=== PATIENT | female | born 1940 | race Caucasian/White ===

== ENCOUNTER 2017-11-04 15:05 | Observation (INO) | payer MEDICARE, OTHER ==
[~2017-11-04 15:05] MED LIST: ASPI81 PO; ATOR10 PO; BIOTCAP PO; BUSP5TAB PO; BYST5TAB2 PO; CO Q100C9 PO; FISH1000 PO; KONS520C PO; SUPECAP3 PO; VITA200017 PO; VITA400C28 PO
[2017-11-04 15:12] VITALS: BP 200/78; PULSE 85; RESP 20; TEMP 98.5; O2SAT 99
[2017-11-04] MEDS ORDERED: SODIUM CHLORIDE 0.9% FLUSH 10 ML FLUSH IVF PRN (15:30)
--- NOTE | 2017-11-04 15:34 | PD ---
HPI Chief Complaint: Chest Pain Time Seen by Provider: 15:19 Travel History International Travel<30 days: No Contact w/Intl Traveler<30days: No Traveled to known affect area: No History of Present Illness HPI 76-year-old female presents with chest pressure since yesterday. She states she took a baby aspirin and nitro. She states in August [place] she had a cardiac catheterization where they cleaned out 2 vessels but they did not stent them. She states she was there because she was visiting. She states Dr. Boswell is her supervisor prepress. She denies any other concurrent complaints other than her arm is bothering her also. Quality is pressure. Severity is moderate. Duration is since yesterday. PFSH Past Medical History Hx Anticoagulant Therapy: Yes Cardiovascular Problems: Yes Hypertension: Yes ?: Not Social History Alcohol Use: Yes (OCCASIONALLY) Tobacco Use: No Allergies-Medications (Allergen,Severity, Reaction): Coded Allergies: codeine (Unverified Allergy, Severe, Rash, 11/04/17) meperidine (Unverified Allergy, Severe, Rash, 11/04/17) morphine (Unverified Allergy, Severe, ITCHING AND RASH, 11/04/17) cefazolin (Unverified Adverse Reaction, Mild, Nausea/Vomiting, 11/04/17) Reported Meds & Prescriptions Reported Meds & Active Scripts Active Reported Icaps (Multiple Vitamins W/ Minerals) 1 Cap 1 Cap PO DAILY Vitamin D-3 (Cholecalciferol) 2,000 Unit Tab 2,000 Units PO DAILY Plavix (Clopidogrel Bisulfate) 75 Mg Tab 75 Mg PO DAILY Aspirin Adult Low Strength (Aspirin) 81 Mg Tabdr 81 Mg PO DAILY Metoprolol Tartrate 25 Mg Tab 25 Mg PO BID Lipitor (Atorvastatin Calcium) 40 Mg Tab 40 Mg PO DAILY Isosorbide Mononitrate ER (Isosorbide Mononitrate) 30 Mg Murphy 30 Mg PO DAILY Claritin (Loratadine) 10 Mg Tablet 10 Mg PO DAILY PRN Review of Systems Except as stated in HPI: all other systems reviewed are Neg Physical Exam Narrative GENERAL: 76-year-old female in no apparent distress SKIN: Focused skin assessment warm/dry. HEAD: Atraumatic. Normocephalic. EYES: Pupils equal and round. No scleral icterus. No injection or drainage. ENT: No nasal bleeding or discharge. Mucous membranes pink and moist. NECK: Trachea midline. No JVD. CARDIOVASCULAR: Regular rate and rhythm. RESPIRATORY: No accessory muscle use. No increased effort GASTROINTESTINAL: Abdomen soft, non-tender, nondistended. MUSCULOSKELETAL: No obvious deformities. No clubbing. No cyanosis. NEUROLOGICAL: Awake and alert. No obvious cranial nerve deficits. Motor grossly within normal limits. Normal speech. PSYCHIATRIC: Appropriate mood and affect; insight and judgment normal. Data Data Last Documented VS Vital Signs Date Time Temp Pulse Resp B/P (MAP) Pulse Ox O2 Delivery O2 Flow Rate FiO2 11/04/17 17:00 65 18 165/78 (107) 98 Room Air 11/04/17 15:12 98.5 Orders Orders Electrocardiogram (11/04/17 15:21) B-Type Natriuretic Peptide (11/04/17 15:21) Ckmb (Isoenzyme) Profile (11/04/17 15:21) Complete Blood Count With Diff (11/04/17 15:21) Comprehensive Metabolic Panel (11/04/17 15:21) Magnesium (Mg) (11/04/17 15:21) Prothrombin Time / Inr (Pt) (11/04/17 15:21) Act Partial Throm Time (Ptt) (11/04/17 15:21) Troponin I (11/04/17 15:21) Chest, Single Ap (11/04/17 15:21) Ecg Monitoring (11/04/17 15:21) Bilateral Bp Monitoring (11/04/17 15:21) Iv Access Insert/Monitor (11/04/17 15:21) Oximetry (11/04/17 15:21) Sodium Chloride 0.9% Flush (Ns Flush) (11/04/17 15:30) Aspirin Chew (Aspirin Chew) (11/04/17 15:45) Nitroglycerin Sl (Nitrostat Sl) (11/04/17 15:45) Admit Order (Ed Use Only) (11/04/17 18:16) Labs Laboratory Tests Test 11/04/17 16:15 White Blood Count 7.8 TH/MM3 Red Blood Count 4.94 MIL/MM3 Hemoglobin 13.6 GM/DL Hematocrit 40.1 % Mean Corpuscular Volume 81.1 FL Mean Corpuscular Hemoglobin 27.6 PG Mean Corpuscular Hemoglobin Concent 34.0 % Red Cell Distribution Width 13.3 % Platelet Count 256 TH/MM3 Mean Platelet Volume 8.3 FL Neutrophils (%) (Auto) 60.6 % Lymphocytes (%) (Auto) 26.2 % Monocytes (%) (Auto) 9.3 % Eosinophils (%) (Auto) 2.4 % Basophils (%) (Auto) 1.5 % Neutrophils # (Auto) 4.7 TH/MM3 Lymphocytes # (Auto) 2.1 TH/MM3 Monocytes # (Auto) 0.7 TH/MM3 Eosinophils # (Auto) 0.2 TH/MM3 Basophils # (Auto) 0.1 TH/MM3 CBC Comment DIFF FINAL Differential Comment Prothrombin Time 11.3 SEC Prothromb Time International Ratio 1.1 RATIO Activated Partial Thromboplast Time 24.5 SEC Blood Urea Nitrogen 14 MG/DL Creatinine 0.71 MG/DL Random Glucose 83 MG/DL Total Protein 7.8 GM/DL Albumin 4.3 GM/DL Calcium Level 9.2 MG/DL Magnesium Level 2.2 MG/DL Alkaline Phosphatase 81 U/L Aspartate Amino Transf (AST/SGOT) 15 U/L Alanine Aminotransferase (ALT/SGPT) 25 U/L Total Bilirubin 0.5 MG/DL Sodium Level 141 MEQ/L Potassium Level 3.8 MEQ/L Chloride Level 104 MEQ/L Carbon Dioxide Level 26.0 MEQ/L Anion Gap 11 MEQ/L Estimat Glomerular Filtration Rate 80 ML/MIN Total Creatine Kinase 65 U/L Troponin I LESS THAN 0.02 NG/ML B-Type Natriuretic Peptide 34 PG/ML MDM Medical Decision Making Medical Screen Exam Complete: Yes Emergency Medical Condition: Yes Medical Record Reviewed: Yes (Past history confirmed) Interpretation(s) CBC & BMP Diagram 11/04/17 16:15 Total Protein 7.8, Albumin 4.3, Calcium Level 9.2, Magnesium Level 2.2, Alkaline Phosphatase 81, Aspartate Amino Transf (AST/SGOT) 15, Alanine Aminotransferase (ALT/SGPT) 25, Total Bilirubin 0.5 Last 24 hours Impressions Chest X-Ray 11/04/17 1521 Signed Impressions: CONCLUSION: 1. No acute cardiopulmonary disease. 2. Mild degenerative changes and scoliosis of the thoracic spine. Differential Diagnosis UT, gastritis, musculoskeletal Narrative Course Will check blood work, imaging and dose with aspirin and nitroglycerin and reevaluate ed workup no acute, will discuss with her supervisor prepress patient updated and agrees to admit Physician Communication Physician Communication dr escobedo states ok with oral and maxillofacial surgery resident observation Diagnosis Primary Impression: Chest pain Qualified Codes: R07.9 - Chest pain, unspecified Admitting Information Admitting Physician Requests: Observation Latrice Salas MD Nov 04, 2017 15:34
[2017-11-04] MEDS ORDERED: NITROGLYCERIN 0.4 MG SL 25 TABS/BTL SL ONE (15:45)
[2017-11-04] MEDS ORDERED: ASPIRIN 81 MG CHEW TAB PO ONE (15:45)
--- NOTE | 2017-11-04 16:21 | RADRPT ---
EXAM DATE: 11/04/2017 4:17 PM EDT AGE/SEX: 76 years / Female INDICATIONS: Pain to anterior chest wall. CLINICAL DATA: This is the patient's initial encounter. Patient reports that signs and symptoms have been present for 1 day and indicates a pain score of 6/10. MEDICAL/SURGICAL HISTORY: None. None. COMPARISON: No prior exams available for comparison. FINDINGS: A single AP view of the chest demonstrates the lungs to be symmetrically aerated without evidence of mass, infiltrate or effusion. The cardiomediastinal contours are unremarkable. Mild degenerative renard nges and scoliosis of the thoracic spine are noted. CONCLUSION: 1. No acute cardiopulmonary disease. 2. Mild degenerative changes and scoliosis of the thoracic spine. Electronically signed by: Mleecio Kendrick MD 11/04/2017 4:19 PM EDT
[2017-11-04 16:23] VITALS: O2SAT 98
[2017-11-04] MEDS ORDERED: CLAR10TA7 PO (16:59)
[2017-11-04] MEDS ORDERED: CHOL1TAB42 PO (16:59)
[2017-11-04] MEDS ORDERED: ASPI81TA16 PO (16:59)
[2017-11-04] MEDS ORDERED: PLAV75TA29 PO (16:59)
[2017-11-04] MEDS ORDERED: ISOS30TA3 PO (16:59)
[2017-11-04] MEDS ORDERED: LIPI40TA PO (16:59)
[2017-11-04] MEDS ORDERED: ICAPCAP PO (16:59)
[2017-11-04] MEDS ORDERED: METO25TA3 PO (16:59)
[2017-11-04 17:00] VITALS: BP 165/78; PULSE 65; RESP 18; O2SAT 98
[2017-11-04 17:09] LABS: AUTOMATED NEUTROPHIL # 4.7 TH/MM3 (1.8-7.7); BASOPHIL # 0.1 TH/MM3 (0-0.2); BASOPHIL % 1.5 % (0.0-2.0); EOSINOPHIL # 0.2 TH/MM3 (0-0.4); EOSINOPHIL % 2.4 % (0.0-4.0); HEMATOCRIT 40.1 % (35.0-46.0); HEMOGLOBIN 13.6 GM/DL (11.6-15.3); LYMPH % 26.2 % (9.0-44.0); LYMPHOCYTE # 2.1 TH/MM3 (1.0-4.8); MEAN CELL VOLUME 81.1 FL (80.0-100.0); MEAN CORPUSCULAR HEMOGLOBIN 27.6 PG (27.0-34.0); MEAN PLATELET VOLUME 8.3 FL (7.0-11.0); MONO % 9.3 % (0.0-8.0); MONOCYTE # 0.7 TH/MM3 (0-0.9); NEUT % 60.6 % (16.0-70.0); PLATELET COUNT 256 TH/MM3 (150-450); RED BLOOD COUNT 4.94 MIL/MM3 (4.00-5.30); RED CELL DISTRIBUTION WIDTH 13.3 % (11.6-17.2); WHITE BLOOD COUNT 7.8 TH/MM3 (4.0-11.0)
[2017-11-04 17:21] LABS: INTERNATIONAL NORMALIZED RATIO 1.1 RATIO; PROTHROMBIN TIME - PATIENT 11.3 SEC (9.8-11.6)
[2017-11-04 17:46] LABS: ALBUMIN 4.3 GM/DL (3.4-5.0); AST (GOT) 15 U/L (15-37); BLOOD UREA NITROGEN 14 MG/DL (7-18); CALCIUM 9.2 MG/DL (8.5-10.1); CHLORIDE 104 MEQ/L (98-107); CREATININE 0.71 MG/DL (0.50-1.00); GLOMERULAR FILTRATION RATE 80 ML/MIN (>89); GLUCOSE,RANDOM 83 MG/DL (74-106); MAGNESIUM 2.2 MG/DL (1.5-2.5); SODIUM (NA) 141 MEQ/L (136-145)
[2017-11-04 17:47] LABS: ALT (GPT) 25 U/L (10-53)
[2017-11-04 17:50] LABS: ALKALINE PHOSPHATASE 81 U/L (45-117); TOTAL BILIRUBIN ADULT 0.5 MG/DL (0.2-1.0); TOTAL PROTEIN 7.8 GM/DL (6.4-8.2); TROPONIN I LESS THAN 0.02 NG/ML (0.02-0.05)
[2017-11-04 19:58] VITALS: O2SAT 97
[2017-11-04] MEDS ORDERED: SODIUM CHLORIDE 0.9% FLUSH 10 ML FLUSH IV FLUSH PRN (20:00)
[2017-11-04 20:10] VITALS: BP 160/75
[2017-11-04 20:46] VITALS: BP 178/83; PULSE 63; RESP 15; TEMP 98.4; O2SAT 97
[2017-11-04] MEDS: SODIUM CHLORIDE 0.9% FLUSH 10 ML FLUSH IV FLUSH SCH (20:56)
[2017-11-04 21:19] LABS: TROPONIN I LESS THAN 0.02 NG/ML (0.02-0.05)
[2017-11-05] VITALS (8 sets, daily range): BP systolic 128–225; BP diastolic 57–95; PULSE 56–85; RESP 16–23; TEMP 98–98.5; O2SAT 95–98
[2017-11-05 00:41] LABS: TROPONIN I LESS THAN 0.02 NG/ML (0.02-0.05)
--- NOTE | 2017-11-05 07:16 | EKG ---
Date Performed: 11/04/2017 Time Performed: 14:40:57 PTAGE: 76 years EKG: Sinus rhythm WITH OCCASIONAL ECTOPIC PREMATURE COMPLEXES LEFT ATRIAL ENLARGEMENT LEFT VENTRICULAR HYPERTROPHY AND ST-T CHANGE ABNORMAL ECG Since PREVIOUS TRACING , no significant change noted PREVIOUS TRACIN07/02/2000 22.05 DOCTOR: Milagros Arzola Interpretating Date/Time 11/05/2017 07:14:23
--- NOTE | 2017-11-05 07:16 | EKG ---
Date Performed: 11/04/2017 Time Performed: 20:50:03 PTAGE: 76 years EKG: Sinus rhythm POSSIBLE LEFT ATRIAL ENLARGEMENT LEFT VENTRICULAR HYPERTROPHY AND ST-T CHANGE ABNORMAL ECG Since PREVIOUS TRACING , no significant change noted PREVIOUS TRACIN11/04/2017 14.40 DOCTOR: Milagros Arzola Interpretating Date/Time 11/05/2017 07:14:56
[2017-11-05] MEDS ORDERED: METOPROLOL TARTRATE 25 MG TAB PO SCH (09:15)
[2017-11-05] MEDS ORDERED: ATORVASTATIN 40 MG TAB PO SCH (09:15)
[2017-11-05] MEDS ORDERED: CLOPIDOGREL 75 MG TAB PO SCH (09:15)
[2017-11-05] MEDS ORDERED: CHOLECALCIFEROL (VIT D3) 1000 UNIT TAB PO SCH (09:15)
[2017-11-05] MEDS ORDERED: MULTIVITAMIN-OPHTHALMIC 1 TAB PO SCH (09:15)
[2017-11-05] MEDS ORDERED: ASPIRIN EC 81 MG TABEC PO SCH (09:15)
[2017-11-05] MEDS ORDERED: LORATADINE 10 MG TAB PO PRN (09:15)
[2017-11-05] MEDS ORDERED: ISOSORBIDE MONONITRATE 30 MG CR TAB (IMDUR) PO SCH (09:15)
--- NOTE | 2017-11-05 10:25 | HHI.HP ---
HPI Primary Care Physician Unknown Chief Complaint Chest pain History of Present Illness This is a 76-year-old female with history of CAD, hypertension, and hyperlipidemia that presents to ED with complaint of chest pain and shortness of breath. States that she had a heart catheterization August and "they cleaned out to arteries but did not put in stents." She has seen her medical insurance collector Dr. Boswell since then. States that she has continued to have same discomforts since having the heart catheterization. States she believes it is brought on with stressful situations. She become short of breath with it and sometimes she only her only symptom is shortness of breath. Denies nausea or diaphoresis. She has had no chest discomfort since being in the chest pain center. Review of Systems General: Patient denies fevers, chills, and recent travel. HEENT: Patient denies headache, sore throat, difficulty swallowing. Cardiovascular: Has the chest discomfort as mentioned above. Denies sensation of heart beating rapidly or irregularly. No syncope. Denies diaphoresis. Respiratory: She has been short of breath. Denies inspirational chest discomfort. Denies coughing wheezing or hemoptysis. GI: Patient denies nausea, vomiting, diarrhea, abdominal pain, bloody stools. Musculoskeletal: Patient denies joint pain or edema. Denies calf pain or edema. Neurovascular: Patient denies numbness, tingling, weakness in extremities. Denies headache. Endocrine: Denies polyuria and polydipsia. Hematologic: Denies easy bruising. Skin: Denies rash or itching. Past Family Social History Allergies: Coded Allergies: codeine (Unverified Allergy, Severe, Rash, 11/04/17) meperidine (Unverified Allergy, Severe, Rash, 11/04/17) morphine (Unverified Allergy, Severe, ITCHING AND RASH, 11/04/17) cefazolin (Unverified Adverse Reaction, Mild, Nausea/Vomiting, 11/04/17) Past Medical History CAD. Hypertension and hyperlipidemia. Denies diabetes. Past Surgical History Heart catheterization 2 months ago, states that 2 arteries were cleaned out but no stent. Reported Medications Reported Meds & Active Scripts Active Reported Icaps (Multiple Vitamins W/ Minerals) 1 Cap 1 Cap PO DAILY Vitamin D-3 (Cholecalciferol) 2,000 Unit Tab 2,000 Units PO DAILY Plavix (Clopidogrel Bisulfate) 75 Mg Tab 75 Mg PO DAILY Aspirin Adult Low Strength (Aspirin) 81 Mg Tabdr 81 Mg PO DAILY Metoprolol Tartrate 25 Mg Tab 25 Mg PO BID Lipitor (Atorvastatin Calcium) 40 Mg Tab 40 Mg PO DAILY Isosorbide Mononitrate ER (Isosorbide Mononitrate) 30 Mg Murphy 30 Mg PO DAILY Claritin (Loratadine) 10 Mg Tablet 10 Mg PO DAILY PRN Active Ordered Medications Current Medications Medications (Trade) Dose Ordered Sig/Eliel Route Start Time Stop Time Status Last Admin (NS Flush) 2 ml UNSCH PRN IVF 11/04/17 15:30 11/04/17 16:21 (NS Flush) 2 ml UNSCH PRN IV FLUSH 11/04/17 20:00 (NS Flush) 2 ml BID IV FLUSH 11/04/17 21:00 11/04/17 20:56 (Ecotrin Ec) 81 mg DAILY PO 11/05/17 09:15 (Lipitor) 40 mg DAILY PO 11/05/17 09:15 (Plavix) 75 mg DAILY PO 11/05/17 09:15 (Imdur) 30 mg DAILY@0700 PO 11/05/17 09:15 (Claritin) 10 mg DAILY PRN PO 11/05/17 09:15 (Lopressor) 25 mg BID PO 11/05/17 09:15 (Vitamin D3) 2,000 units DAILY PO 11/05/17 09:15 (Ocuvite) 1 tab DAILY PO 11/05/17 09:15 Family History Family history of CAD. Social History Does not smoke or use illicit drugs. Rare alcohol. Physical Exam Vital Signs Vital Signs Date Time Temp Pulse Resp B/P (MAP) Pulse Ox O2 Delivery O2 Flow Rate FiO2 11/05/17 08:03 98.2 85 23 225/95 (138) 11/05/17 07:23 67 11/05/17 04:43 98.5 59 16 165/72 (103) 98 11/05/17 04:19 57 11/05/17 02:25 56 11/05/17 01:12 98.3 59 16 140/69 (92) 97 11/04/17 20:46 98.4 63 15 178/83 (114) 97 11/04/17 20:10 60 18 160/75 (103) 98 11/04/17 19:58 97 21 11/04/17 17:00 65 18 165/78 (107) 98 Room Air 11/04/17 16:23 98 Room Air 11/04/17 15:12 98.5 85 20 200/78 (118) 99 Physical Exam GENERAL: This is a well-nourished, well-developed patient, in no apparent distress. Patient speaks in clear complete sentences. Patient is pleasant. HEENT: Head is atraumatic and normocephalic. Neck is supple without lymphadenopathy and trachea is midline. No JVD or carotid bruits. CARDIOVASCULAR: Regular rate and rhythm without murmurs, gallops, or rubs. RESPIRATORY: Clear to auscultation. Breath sounds equal bilaterally. No wheezes , rales, or rhonchi. Chest wall is nontender. No use of accessory muscles. GASTROINTESTINAL: Abdomen is nontender, nondistended. Abdomen soft. No obvious pulsatile mass or bruit. No CVA tenderness. Strong femoral pulses bilaterally. Normal bowel sounds in all quadrants. MUSCULOSKELETAL: Patient is moving upper and lower extremities freely. No calf tenderness or edema, no Homans sign. Strong pulses in upper and lower extremities. NEUROLOGICAL: Patient is alert and oriented. Cranial nerves 2-12 are grossly intact. No focal deficits and speech is clear. SKIN: No rash and turgor is normal. Laboratory Laboratory Tests Test 11/04/17 16:15 11/04/17 20:34 11/04/17 23:56 White Blood Count 7.8 Red Blood Count 4.94 Hemoglobin 13.6 Hematocrit 40.1 Mean Corpuscular Volume 81.1 Mean Corpuscular Hemoglobin 27.6 Mean Corpuscular Hemoglobin Concent 34.0 Red Cell Distribution Width 13.3 Platelet Count 256 Mean Platelet Volume 8.3 Neutrophils (%) (Auto) 60.6 Lymphocytes (%) (Auto) 26.2 Monocytes (%) (Auto) 9.3 Eosinophils (%) (Auto) 2.4 Basophils (%) (Auto) 1.5 Neutrophils # (Auto) 4.7 Lymphocytes # (Auto) 2.1 Monocytes # (Auto) 0.7 Eosinophils # (Auto) 0.2 Basophils # (Auto) 0.1 CBC Comment DIFF FINAL Differential Comment Prothrombin Time 11.3 Prothromb Time International Ratio 1.1 Activated Partial Thromboplast Time 24.5 Blood Urea Nitrogen 14 Creatinine 0.71 Random Glucose 83 Total Protein 7.8 Albumin 4.3 Calcium Level 9.2 Magnesium Level 2.2 Alkaline Phosphatase 81 Aspartate Amino Transf (AST/SGOT) 15 Alanine Aminotransferase (ALT/SGPT) 25 Total Bilirubin 0.5 Sodium Level 141 Potassium Level 3.8 Chloride Level 104 Carbon Dioxide Level 26.0 Anion Gap 11 Estimat Glomerular Filtration Rate 80 Total Creatine Kinase 65 68 55 Troponin I LESS THAN 0.02 LESS THAN 0.02 LESS THAN 0.02 B-Type Natriuretic Peptide 34 Result Diagram: 11/04/17 1615 11/04/17 1615 Imaging Last 48 hours Impressions Chest X-Ray 11/04/17 1521 Signed Impressions: CONCLUSION: 1. No acute cardiopulmonary disease. 2. Mild degenerative changes and scoliosis of the thoracic spine. Course EKGs have been sinus rhythm sinus bradycardia without significant ST segment depressions or elevations. Caprini VTE Risk Assessment Caprini VTE Risk Assessment: Mod/High Risk (score >= 2) Caprini Risk Assessment Model Point Value = 1 Point Value = 2 Point Value = 3 Point Value = 5 Age 41-60 Minor surgery BMI > 25 kg/m2 Swollen legs Varicose veins or History of unexplained or recurrent spontaneous Oral contraceptives or hormone replacement Sepsis (< 1 month) Serious lung disease, including pneumonia (< 1 month) Abnormal pulmonary function Acute myocardial infarction Congestive heart failure (< 1 month) History of inflammatory bowel disease Medical patient at bed rest Age 61-74 Arthroscopic surgery Major open surgery (> 45 min) Laparoscopic surgery (> 45 min) Malignancy Confined to bed (> 72 hours) Immobilizing plaster cast Central venous access Age >= 75 History of VTE Family history of VTE Factor V Leiden Prothrombin [id number] Lupus anticoagulant Anticardiolipin antibodies Elevated serum homocysteine Heparin-induced thrombocytopenia Other congenital or acquired thrombophilia Stroke (< 1 month) Elective arthroplasty Hip, pelvis, or leg fracture Acute spinal cord injury (< 1 month) Prophylaxis Regimen Total Risk Factor Score Risk Level Prophylaxis Regimen 0-1 Low Early ambulation 2 Moderate Order ONE of the following: *Sequential Compression Device (SCD) *Heparin 5000 units SQ BID 3-4 Higher Order ONE of the following medications: *Heparin 5000 units SQ TID *Enoxaparin/Lovenox 40 mg SQ daily (WT < 150 kg, CrCl > 30 mL/min) *Enoxaparin/Lovenox 30 mg SQ daily (WT < 150 kg, CrCl > 10-29 mL/min) *Enoxaparin/Lovenox 30 mg SQ BID (WT < 150 kg, CrCl > 30 mL/min) AND/OR *Sequential Compression Device (SCD) 5 or more Highest Order ONE of the following medications: *Heparin 5000 units SQ TID (Preferred with Epidurals) *Enoxaparin/Lovenox 40 mg SQ daily (WT < 150 kg, CrCl > 30 mL/min) *Enoxaparin/Lovenox 30 mg SQ daily (WT < 150 kg, CrCl > 10-29 mL/min) *Enoxaparin/Lovenox 30 mg SQ BID (WT < 150 kg, CrCl > 30 mL/min) AND *Sequential Compression Device (SCD) Assessment and Plan Assessment and Plan * Chest pain: Patient has had serial cardiac enzymes and EKGs for ruling out purposes. She was seen by myself and Dr. Arzola in the chest pain center. A call was placed out to Dr. Boswell to discuss this patient. The nurse brought to my attention that the patient has requested a different provider. She also states that she will not leave until being seen by Dr. Boswell. I discussed this with Dr. Boswell. She will be admitted to hospitalist with consult to Dr. Boswell. I have put in the Lexiscan ordered that Dr. rogers has requested. Dr. Hodges has accepted the patient to his service. Reza Peter Nov 05, 2017 10:25
[2017-11-05] MEDS: SODIUM CHLORIDE 0.9% FLUSH 10 ML FLUSH IV FLUSH SCH (10:46)
--- NOTE | 2017-11-05 12:26 | EKG ---
Date Performed: 11/04/2017 Time Performed: 22:55:37 PTAGE: 76 years EKG: SINUS BRADYCARDIA POSSIBLE LEFT ATRIAL ENLARGEMENT LEFT VENTRICULAR HYPERTROPHY AND ST-T CH KATERIN ABNORMAL ECG Since PREVIOUS TRACING , no significant change noted PREVIOUS TRACIN11/04/2017 20.50 DOCTOR: Milagros Arzola Interpretating Date/Time 11/05/2017 12:25:41
[2017-11-05] MEDS ORDERED: amLODIPine BESYLATE 5 MG TAB PO SCH (12:30)
--- NOTE | 2017-11-05 12:44 | PD.CONS ---
HPI Service Cardiology Consult Requested By Reason for Consult Chest pain Primary Care Physician Dr. Richa Palomino History of Present Illness Pleasant anxious 76 year old female well known to our practice with a history or recent heart cath with angioplasty 08/[address] Tamayo in [facility], moderate to sever carotid stenosis, HTN, hyperlipidemia, and palpitations. She reports that she has been having episodes of chest discomfort associated with SOB that occur when she is under stress. She admits to feeling anxious and becoming easily stressed. She reports that the pain is not worse with exertion and does not radiate. She denies any nausea or vomiting. Does have dizziness, long history of vertigo. On examination she reports having a dull chest ache that is constant, does not change in severity when applying pressure to chest wall. BP was elevated this AM, pt reports it is due to stress. (July Loo) Review of Systems Consitutional: DENIES: Fatigue, Fever, Chills, Weight gain, Weight loss Eyes: DENIES: Amaurosis Fugax, Change in vision HEENT: COMPLAINS OF: Lightheadedness Respiratory: COMPLAINS OF: Shortness of breath Cardiovascular: COMPLAINS OF: Chest pain Gastrointestinal: DENIES: Nausea, Vomiting, Change in bowel habits, Reflux, Bloody stools, Melena Genitourinary: DENIES: Urinary incontinence, Difficulty voiding Integumentary: DENIES: Rash Neurologic: DENIES: Tingling or numbness, Memory problems, Poor Balance, Stroke symptoms Musculoskeletal: DENIES: Joint pain, Muscle pain, Limited range of motion, Back pain Psychiatric: DENIES: Anxiety, Depression, Sleep disturbances Hematologic: DENIES: Bruising tendencies, Bleeding tendencies Endocrine: DENIES: Weight gain, Weight loss, Thyroid disease (July Loo) Past Family Social History Allergies: Coded Allergies: codeine (Unverified Allergy, Severe, Rash, 11/04/17) meperidine (Unverified Allergy, Severe, Rash, 11/04/17) morphine (Unverified Allergy, Severe, ITCHING AND RASH, 11/04/17) cefazolin (Unverified Adverse Reaction, Mild, Nausea/Vomiting, 11/04/17) Past Medical History ASHD, status post recent heart cath and angioplasty with Dr. Tamayo in [facility] 2017 HTN Moderate to severe carotid stenosis Hyperlipidemia Anxiety Memory Impairment. Past Surgical History Heart catheterization 08/2017 and 04/2011 Reported Medications Reported Meds & Active Scripts Active Reported Icaps (Multiple Vitamins W/ Minerals) 1 Cap 1 Cap PO DAILY Vitamin D-3 (Cholecalciferol) 2,000 Unit Tab 2,000 Units PO DAILY Plavix (Clopidogrel Bisulfate) 75 Mg Tab 75 Mg PO DAILY Aspirin Adult Low Strength (Aspirin) 81 Mg Tabdr 81 Mg PO DAILY Metoprolol Tartrate 25 Mg Tab 25 Mg PO BID Lipitor (Atorvastatin Calcium) 40 Mg Tab 40 Mg PO DAILY Isosorbide Mononitrate ER (Isosorbide Mononitrate) 30 Mg Murphy 30 Mg PO DAILY Claritin (Loratadine) 10 Mg Tablet 10 Mg PO DAILY PRN Active Ordered Medications Current Medications Medications (Trade) Dose Ordered Sig/Eliel Route Start Time Stop Time Status Last Admin (NS Flush) 2 ml UNSCH PRN IVF 11/04/17 15:30 11/04/17 16:21 (NS Flush) 2 ml UNSCH PRN IV FLUSH 11/04/17 20:00 (NS Flush) 2 ml BID IV FLUSH 11/04/17 21:00 11/05/17 10:46 (Ecotrin Ec) 81 mg DAILY PO 11/05/17 09:15 11/05/17 10:46 (Lipitor) 40 mg DAILY PO 11/05/17 09:15 11/05/17 10:46 (Plavix) 75 mg DAILY PO 11/05/17 09:15 (Imdur) 30 mg DAILY@0700 PO 11/05/17 09:15 11/05/17 11:02 (Claritin) 10 mg DAILY PRN PO 11/05/17 09:15 11/05/17 10:46 (Lopressor) 25 mg BID PO 11/05/17 09:15 11/05/17 10:47 (Vitamin D3) 2,000 units DAILY PO 11/05/17 09:15 11/05/17 10:45 (Ocuvite) 1 tab DAILY PO 11/05/17 09:15 Family History Unknown Social History Former smoker, No ETOH use (Shadeed,August CHICK SEXER) Physical Exam Vital Signs Vital Signs Date Time Temp Pulse Resp B/P (MAP) Pulse Ox O2 Delivery O2 Flow Rate FiO2 11/05/17 11:49 61 11/05/17 08:03 98.2 85 23 225/95 (138) 11/05/17 07:23 67 11/05/17 04:43 98.5 59 16 165/72 (103) 98 11/05/17 04:19 57 11/05/17 02:25 56 11/05/17 01:12 98.3 59 16 140/69 (92) 97 11/04/17 20:46 98.4 63 15 178/83 (114) 97 11/04/17 20:10 60 18 160/75 (103) 98 11/04/17 19:58 97 21 11/04/17 17:00 65 18 165/78 (107) 98 Room Air 11/04/17 16:23 98 Room Air 11/04/17 15:12 98.5 85 20 200/78 (118) 99 Physical Exam GENERAL: Pleasantly, anxious, elderly female. SKIN: Warm and dry. HEAD: Atraumatic. Normocephalic. EYES: Pupils equal and round. No scleral icterus. No injection or drainage. ENT: No nasal bleeding or discharge. Mucous membranes pink and moist. NECK: Trachea midline. No JVD. CARDIOVASCULAR: Regular rate and rhythm. RESPIRATORY: No accessory muscle use. Clear to auscultation. Breath sounds equal bilaterally. GASTROINTESTINAL: Abdomen soft, non-tender, nondistended. Hepatic and splenic margins not palpable. MUSCULOSKELETAL: Extremities without clubbing, cyanosis, or edema. No obvious deformities. NEUROLOGICAL: Awake and alert. No obvious cranial nerve deficits. Motor grossly within normal limits. Five out of 5 muscle strength in the arms and legs. Normal speech. PSYCHIATRIC: Appropriate mood and affect; insight and judgment normal. Laboratory Laboratory Tests Test 11/04/17 16:15 11/04/17 20:34 11/04/17 23:56 White Blood Count 7.8 Red Blood Count 4.94 Hemoglobin 13.6 Hematocrit 40.1 Mean Corpuscular Volume 81.1 Mean Corpuscular Hemoglobin 27.6 Mean Corpuscular Hemoglobin Concent 34.0 Red Cell Distribution Width 13.3 Platelet Count 256 Mean Platelet Volume 8.3 Neutrophils (%) (Auto) 60.6 Lymphocytes (%) (Auto) 26.2 Monocytes (%) (Auto) 9.3 Eosinophils (%) (Auto) 2.4 Basophils (%) (Auto) 1.5 Neutrophils # (Auto) 4.7 Lymphocytes # (Auto) 2.1 Monocytes # (Auto) 0.7 Eosinophils # (Auto) 0.2 Basophils # (Auto) 0.1 CBC Comment DIFF FINAL Differential Comment Prothrombin Time 11.3 Prothromb Time International Ratio 1.1 Activated Partial Thromboplast Time 24.5 Blood Urea Nitrogen 14 Creatinine 0.71 Random Glucose 83 Total Protein 7.8 Albumin 4.3 Calcium Level 9.2 Magnesium Level 2.2 Alkaline Phosphatase 81 Aspartate Amino Transf (AST/SGOT) 15 Alanine Aminotransferase (ALT/SGPT) 25 Total Bilirubin 0.5 Sodium Level 141 Potassium Level 3.8 Chloride Level 104 Carbon Dioxide Level 26.0 Anion Gap 11 Estimat Glomerular Filtration Rate 80 Total Creatine Kinase 65 68 55 Troponin I LESS THAN 0.02 LESS THAN 0.02 LESS THAN 0.02 B-Type Natriuretic Peptide 34 (July Loo) Result Diagram: 11/04/17 1615 11/04/17 1615 Imaging Last 72 hours Impressions Chest X-Ray 11/04/17 1521 Signed Impressions: CONCLUSION: 1. No acute cardiopulmonary disease. 2. Mild degenerative changes and scoliosis of the thoracic spine. (July Loo) Assessment and Plan Assessment and Plan Chest pain ASHD HTN Hyperlipidmia Carotid stenosis Plan Troponins negative x3, nuclear stress test pending. On ASA, BB and statin. If stress test is negative, will plan to discharge patient home on home medications and will follow up as outpatient. Status post recent heart cath and angioplasty with Dr. Tamayo, cath report reviewed. Echo 08/2017 showed EF 55-60%, no significant valvular abnormalities. BP elevated. Pt anxious. Will add amlodipine 5 mg daily. On statin Recent carotid ultrasound completed in office shows left sided 80% stenosis, will continue to follow closely. The patient was seen and evaluated by Dr. Boswell who completed face to face encounter and pysical exam and participated in care, management and decision making. Discussed Condition With Nurse (July Loo) Assessment and Plan The exam, history, and the medical decision-making described in the above note were completed with the assistance of the mid-level provider. I reviewed and agree with the findings presented. I attest that I had a [id number] encounter with the patient on the same day. Overall doing better. (Manuel Boswell MD) Cinda,August Kalpana OLIVER Nov 05, 2017 12:44 Manuel Boswell MD Nov 06, 2017 16:57
[2017-11-05] MEDS ORDERED: REGADENOSON INJ 0.4 MG/5 ML SYR ONE (12:49)
[2017-11-05] MEDS ORDERED: ENALAPRILAT 1.25 MG/ML VIAL IV PUSH PRN (13:00)
--- NOTE | 2017-11-05 14:07 | RADRPT ---
EXAM DATE: 11/05/2017 1:57 PM EDT AGE/SEX: 76 years / Female INDICATIONS:Angina. . Chest pain and dyspnea. CLINICAL DATA: This is the patient's initial encounter. Patient reports that signs and symptoms have been present for 1 day and indicates a pain score of 0/10. MEDICAL/SURGICAL HISTORY: Cardiovascular disease. Hypertension. Appendectomy. Lithotripsy. C holecystectomy. COMPARISON: No prior exams available for comparison. No external comparison. DOSE: 8.5 mCi Tc 99m Myoview at rest 26.3 mCi [id number] at stress 0.4 mg Lexiscan STRESS SYMPTOMS: Chest pain. EJECTION FRACTION: 70 % TECHNIQUE: The patient underwent pharmacologic stress with infusion of prescribed dose. Continuous ECG tracing was monitored during stress. Gated SPECT imaging was performed after stress and conventi onal SPECT imaging was performed at rest. The examination was performed on a SPECT/CT scanner, both attenuation and non-corrected datasets were reviewed. FINDINGS: Distribution: The maximum perfused segment at stress is in the anterior and inferior short. Perfusion Study: The pattern of perfusion at stress is within normal limits. Gated Study: There are intact wall motion and wall thickening without hypokinetic or dyskinetic segm ents. The ejection fraction is calculated at 70%. RISK CATEGORY: Low (<1% Annual Motality Rate) CONCLUSION: 1. Negative examination. 2. No evidence of fixed or reversible perfusion abnormalities. 3. Normal wall motion and ejection fraction. Electronically signed by: Brennan Colorado MD 11/05/2017 2:06 PM EDT
--- NOTE | 2017-11-05 14:51 | HHI.PR ---
Addendum to Inpatient Note Addendum Reason: Additional Documentation Additional Information patient seen and examined patient is stable for discharge Discharge patient to home Condition on discharge: Improved Regular Diet as tolerated Ad Betty activity Rx written: Follow-up with primary care physician in 1 week Follow-up with cardiology as needed Last Impressions Myocardial Perfusion Scan Nuc Med 11/05/17 0000 Signed Impressions: CONCLUSION: 1. Negative examination. 2. No evidence of fixed or reversible perfusion abnormalities. 3. Normal wall motion and ejection fraction. Chest X-Ray 11/04/17 1521 Signed Impressions: CONCLUSION: 1. No acute cardiopulmonary disease. 2. Mild degenerative changes and scoliosis of the thoracic spine. Omar Hodges MD Nov 05, 2017 14:51
--- NOTE | 2017-11-05 16:29 | TR ---
Date Performed: 11/05/2017 Time Performed: 12:51:45 DOCTOR: Dusty Akers DRUG LIST: CLINICAL HISTORY: REASON FOR TEST: REASON FOR ENDING: OBSERVATION: CONCLUSION: Electrocardiographically negative stress test. COMMENTS:
== END 2017-11-05 16:28 | disposition home or self-care (01) ==
LOC: NEPE 15:05 → NEDA 18:17 → NEPHCDU 20:12
PROVIDERS: ADMIT Hospitalist; ATTEND Hospitalist
DX: R07.9 Chest pain, unspecified (principal); I25.10 Atherosclerotic heart disease of native coronary artery without angina pectoris; R94.31 Abnormal electrocardiogram [ECG] [EKG]; I10 Essential (primary) hypertension; E78.5 Hyperlipidemia, unspecified; I65.29 Occlusion and stenosis of unspecified carotid artery; M41.9 Scoliosis, unspecified; Z87.891 Personal history of nicotine dependence; Z82.49 Family history of ischemic heart disease and other diseases of the circulatory system
CPT/HCPCS: 71045; 78452; 80053; 82550; 83735; 83880; 84484; 85025; 85610; 85730; 93005; 93017; 99285; A9502; G0378; J2785